=== PATIENT | male | born 2000 | race Two or more races ===

== ENCOUNTER 2020-05-19 15:36 | Emergency (ER) | payer MEDICAID ==
[2020-05-19] MEDS ORDERED: Lidocaine 1% 10 ML MDV INJECT ONE (15:52)
[2020-05-19] MEDS ORDERED: Diphtheria,Pertussis(Acell),Tetanus Vaccine 0.5 ML Syringe IM ONE (15:52)
--- NOTE | 2020-05-19 16:52 | EDM.PDOC ---
ED HPI GENERAL MEDICAL PROBLEM - General Chief Complaint: Lower Extremity Injury/Pain Stated Complaint: LEFT FOOT STEPED ON FLORENTINO NAIL NEEDS TETNUS SHOT Time Seen by Provider: 05/19/20 15:47 Source of Information: Reports: Patient History Limitations: Reports: No Limitations - History of Present Illness INITIAL COMMENTS - FREE TEXT/NARRATIVE: Patient is a 19-year-old male who presents to the emergency department with complaints of stepping on a florentino nail prior to coming to ER. States he was at work and a nail to hold a palate together went through his shoe. He estimates t hat it went in about 1 inch. He is unsure when his last tetanus vaccination was. - Related Data Allergies Allergy/AdvReac Type Severity Reaction Status Date / Time No Known Allergies Allergy Verified 05/19/20 15:47 Home Meds: Home Meds Albuterol Sulfate [Albuterol Sulfate Hfa] 2 inh INH ASDIRECTED PRN 05/19/20 [History] Past Medical History - Past Health History Medical/Surgical History: Denies Medical/Surgical History Social & Family History - Tobacco Use Smoking Status *Q: Never Smoker Second Hand Smoke Exposure: No - Caffeine Use Caffeine Use: Reports: None - Recreational Drug Use Recreational Drug Use: No Review of Systems - Review of Systems Review Of Systems: Comprehensive ROS is negative, except as noted in HPI. ED EXAM, GENERAL - Physical Exam Exam: See Below Exam Limited By: No Limitations General Appearance: Alert, WD/WN, No Apparent Distress Respiratory/Chest: No Respiratory Distress, Lungs Clear, Normal Breath Sounds, No Accessory Muscle Use, Chest Non-Tender Cardiovascular: Normal Peripheral Pulses, Regular Rate, Rhythm, No Edema, No Gallop, No JVD, No Murmur, No Rub Skin Exam: Other (Pinpoint puncture wound to the ventral aspect of the left foot. No active bleeding.) Course - Vital Signs Last Recorded V/S: Last Vital Signs Temp 98.5 F 05/19/20 15:46 Pulse 81 05/19/20 15:46 Resp 18 05/19/20 15:46 BP 112/79 05/19/20 15:46 Pulse Ox 98 05/19/20 15:46 - Orders/Labs/Meds Orders: Active Orders 24 hr Category Date Time Status Vaccines to be Administered [RC] PER UNIT ROUTINE Care 05/19/20 15:52 Active Meds: Medications Discontinued Medications Generic Name Dose Route Start Last Admin Trade Name Ariana PRN Reason Stop Dose Admin Diphtheria/Tetanus/Acell Pertussis 0.5 ml 05/19/20 15:52 05/19/20 16:21 Adacel IM 05/19/20 15:53 0.5 ml .ONCE ONE Administration Lidocaine HCl 10 ml 05/19/20 15:52 Xylocaine 1% INJECT 05/19/20 15:53 ONETIME ONE - Re-Assessments/Exams Free Text/Narrative Re-Assessment/Exam: Patient is a 19-year-old male who presents to the ER after stepping on a florentino nail at work. There is a pinpoint puncture wound to the distal aspect of the left ventral foot. No active bleeding. Tetanus vaccination was updated today. Discussed signs of infection and when to seek follow-up care. Discharge instructions as documented. Departure - Departure Time of Disposition: 16:51 Disposition: Home, Self-Care 01 Condition: Good Clinical Impression: Puncture wound of skin from metal nail - Discharge Information *PRESCRIPTION DRUG MONITORING PROGRAM REVIEWED*: No *COPY OF PRESCRIPTION DRUG MONITORING REPORT IN PATIENT MARY: No Referrals: PCP,None [Primary Care Provider] - Additional Instructions: You were seen in the emergency department today for puncture wound to your left foot after stepping on a nail at work. Your tetanus vaccination was updated today and is valid for 10 years. Keep the wound clean and dry. Wash with normal soap and water twice daily. Watch for signs of infection including increased redness, swelling, or purulent drainage. If these should occur, you should be seen either in the clinic or in the emergency department as antibiotic treatment may be needed. Return to the ER as needed. Sepsis Event Note (ED) - Evaluation Sepsis Screening Result: No Definite Risk - Focused Exam Vital Signs: Vital Signs Temp Pulse Resp BP Pulse Ox 05/19/20 15:46 98.5 F 81 18 112/79 98 - My Orders Last 24 Hours: My Active Orders 05/19/20 15:52 Vaccines to be Administered [RC] PER UNIT ROUTINE - Assessment/Plan Last 24 Hours: My Active Orders 05/19/20 15:52 Vaccines to be Administered [RC] PER UNIT ROUTINE
== END 2020-05-19 17:00 | disposition home or self-care (01) ==
LOC: JD.ED 15:36
DX: S91.332A Puncture wound without foreign body, left foot, initial encounter (principal); Z23 Encounter for immunization; W45.0XXA Nail entering through skin, initial encounter
CPT/HCPCS: 90471; 90715; 99282; 99283

== ENCOUNTER 2020-11-14 17:59 | Emergency (ER) | payer OTHER ==
--- NOTE | 2020-11-14 20:15 | EDM.PDOC ---
ED HPI GENERAL MEDICAL PROBLEM - General Chief Complaint: ENT Problem Stated Complaint: PROPANE SPRAYED IN EYE Time Seen by Provider: 11/14/20 19:27 Source of Information: Reports: Patient History Limitations: Reports: No Limitations - History of Present Illness INITIAL COMMENTS - FREE TEXT/NARRATIVE: Mr. Blakely is a very pleasant 19-year-old gentleman who now presents the ED after propane was accidentally sprayed into his right eye while at work. 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 He was not wearing glasses or goggles. He states that he initially felt a burning sensation to the skin around his eye, although no pain to his eye itself. He states that he went inside, told his boss what had happened, and was washing his right eye in an eye registered health nurse in less than a minute. He states that he irrigated his right eye for about 5 minutes before coming to the ED. Here in the ED, the patient was found to be hemodynamically stable, afebrile, saturating 97% on room air. At this time, the patient denies having any right eye discomfort or visual changes whatsoever. Other than tonight's right eye injury, the patient denies having a recent fever, chills, sore throat, ear pain, nasal or sinus congestion, cough, dyspnea, chest pain, palpitations, nausea, vomiting, constipation, diarrhea, abdominal pain, urinary symptoms, recent weight gain or weight loss, recent bloody bowel movements or black bowel movements, recent joint aches, headaches, or rashes. The patient does not have a PCP. He has not received an influenza vaccine this season, and declined an offer to get one here in the ED. Right Eye Pain Score (Numeric/FACES): 4 - Related Data Allergies Allergy/AdvReac Type Severity Reaction Status Date / Time No Known Allergies Allergy Verified 11/14/20 18:12 Home Meds: Home Meds Albuterol Sulfate [Albuterol Sulfate Hfa] 2 inh INH ASDIRECTED PRN 05/19/20 [History] Past Medical History Respiratory History: Reports: Asthma (suspeccted, not tested) - Past Surgical History Male Surgical History: Reports: Circumcision Social & Family History - Tobacco Use Tobacco Use Status *Q: Never Tobacco User - Caffeine Use Caffeine Use: Reports: Coffee - Alcohol Use Alcohol Use History: Yes Alcohol Use Frequency: Socially - Recreational Drug Use Recreational Drug Use: Yes Drug Use in Last 12 Months: No Recreational Drug Type: Reports: Marijuana/Hashish (last smoked 2018) - Living Situation & Occupation Living situation: Reports: Single, with Family Occupation: Employed ([employer]) ED ROS GENERAL - Review of Systems Review Of Systems: Comprehensive ROS is negative, except as noted in HPI. ED EXAM GENERAL W FULL EYE - Physical Exam Exam: See Below Exam Limited By: No Limitations General Appearance: Alert, WD/WN, No Apparent Distress Eyelids: Bilateral: Normal Appearance Conjunctiva & Sclera: Bilateral: Normal Appearance Cornea Exam: Bilateral: Normal Appearance Extraocular Movements: Bilateral: Intact Pupils: Normal Accommodation Pupillary Size: Bilateral: 5 mm Pupillary Reaction: Bilateral: Brisk Anterior Chamber: Bilateral: Normal Appearance Course - Vital Signs Last Recorded V/S: Last Vital Signs Temp 37.2 C 11/14/20 18:08 Pulse 77 11/14/20 18:08 Resp 16 11/14/20 18:08 BP 123/68 11/14/20 18:08 Pulse Ox 97 11/14/20 18:08 - Re-Assessments/Exams Free Text/Narrative Re-Assessment/Exam: 11/14/20 20:11 As above, the patient suffered momentary exposure of propane to his right eye, but quickly used an eyewash for about 5 minutes, and while he had some burning sensation to the skin around his eye when he initially arrived to the ED, he denies having eye pain itself, and since that time, his symptoms have resolved completely. He states that his right sclera was initially injected, however, now it is not; his right eye looks the same as his left. No further treatment is necessary. Departure - Departure Time of Disposition: 20:12 Disposition: Home, Self-Care 01 Condition: Good Clinical Impression: Chemical injury of right eye - Discharge Information *PRESCRIPTION DRUG MONITORING PROGRAM REVIEWED*: Not Applicable *COPY OF PRESCRIPTION DRUG MONITORING REPORT IN PATIENT MARY: Not Applicable Instructions: Chemical Burn of the Eyes, Adult Referrals: PCP,None [Primary Care Provider] - Forms: ED Department Discharge Additional Instructions: You were seen in the emergency room after propane sprayed into your right eye, while at work. On examination, no injury to your right eye was found. No further treatment is necessary. You may resume your usual activities. If any other problems, please do not hesitate to return to the ER. Sepsis Event Note (ED) - Evaluation Sepsis Screening Result: No Definite Risk - Focused Exam Vital Signs: Vital Signs Temp Pulse Resp BP Pulse Ox 11/14/20 18:08 37.2 C 77 16 123/68 97
== END 2020-11-14 20:05 | disposition home or self-care (01) ==
LOC: JD.ED 17:59
DX: S05.91XA Unspecified injury of right eye and orbit, initial encounter (principal); J45.909 Unspecified asthma, uncomplicated; X58.XXXA Exposure to other specified factors, initial encounter; Y99.0 Civilian activity done for income or pay
CPT/HCPCS: 99282; 99283